=== PATIENT | female | born 1945 | race Caucasian/White ===

== ENCOUNTER 2018-03-05 03:10 | Observation (INO) | payer OTHER ==
--- NOTE | 2018-03-05 03:17 | EDPHY ---
H & P Time Seen by Provider: 03/05/18 03:15 HPI/ROS: HPI CHIEF COMPLAINT: Right shoulder pain. HISTORY OF PRESENT ILLNESS: Patient is a 72-year-old female, very pleasant, she is very hard of hearing and has cochlear implants, has a history of hypertension and hyperlipidemia additionally AFib on Coumadin she presents emergency room with right lateral shoulder pain. She reports to me that she lives in [place] but she staying with a friend here in [place] this evening. She rolled over in bed and woke up with severe right shoulder pain. She has had previous right shoulder dislocations. Denies any chest pain or shortness of breath. Patient did receive 75 mcg IV fentanyl prior to arrival by EMS. Past Medical History: Hypertension, hyperlipidemia, AFib on Coumadin, cochlear implants Past Surgical History: Cochlear implants Social History: Denies daily use drugs alcohol tobacco. Family History: Noncontributory ROS REVIEW OF SYSTEMS: A comprehensive 10 point review of systems is otherwise negative aside from elements mentioned in the history of present illness. Exam Constitutional triage nursing summary reviewed, vital signs reviewed, awake/ alert. Eyes normal conjunctivae and sclera, EOMI, PERRLA. HENT normal inspection, atraumatic, moist mucus membranes, no epistaxis, neck supple/ no meningismus, no raccoon eyes. Respiratory clear to auscultation bilaterally, normal breath sounds, no respiratory distress, no wheezing. Cardiovascular rate normal, regular rhythm, no murmur, no edema, distal pulses normal. Gastrointestinal soft, non-tender, no rebound, no guarding, normal bowel sounds, no distension, no pulsatile mass. Genitourinary no CVA tenderness. Musculoskeletal right upper extremity: Neurovascularly intact, held in abduction, good distal pulse, good radial pulse, good cap refill, tender palpation over the right lateral shoulder. no midline vertebral tenderness, full range of motion, no calf swelling, no tenderness of extremities, no meningismus, good pulses, neurovascularly intact. Skin pink, warm, & dry, no rash, skin atraumatic. Neurologic awake, alert and oriented x 3, AAOx3, moves all 4 extremities equally, motor intact, sensory intact, CN II-XII intact, normal cerebellar, normal vision, normal speech. Psychiatric normal mood/affect. Heme/Lymph/Immune no lymphadenopathy. Differential Diagnosis: Includes but is not limited to in a particular order shoulder dislocation, shoulder fracture can humeral neck fracture, dislocation, osteoarthritis. Medical Decision Making: Plan for this patient x-ray right shoulder. And re- evaluate. Check coags. Re-evaluation: X-ray of the right shoulder reviewed. The humeral head appears to be riding high. I do not appreciate acute fracture. He does not appear dislocated. 0352: Patient re-evaluate she still having ongoing right shoulder pain. I have ordered her 1 mg IV Dilaudid to reassess and see if she can move her shoulder. 0408: Patient re-evaluated. She did receive 1 mg IV Dilaudid and still has significant pain when I go to range her right shoulder. Given the amount of significant pain she is having of proceed with CT scan of her right shoulder to further evaluate. CT scan of the right shoulder shows a posterior shoulder dislocation with fracture. This was discussed with me by Dr. Trejo. This was not well visualized on the x-ray. 0500: Will consult Orthopedics for the posterior right shoulder dislocation. 0501: I spoke with Orthopedic surgery Rae [facility] for Dr. Trent. She will call her attending physician run the case by them for further treatment plan. 0502: I did re-evaluate the patient she is still neurovascular intact with good distal pulse. However she is refusing me to touch her shoulder she has significant pain with any range of motion of the shoulder. Consistent with posterior shoulder joint dislocation. Orthopedics has been consulted. 0516: I had a long discussion with the patient. I gave her the options about going to the operating room today with Orthopedics or attempted conscious sedation with reduction of the posterior shoulder dislocation She would like to try to have a conscious sedation reduction here in the emergency room which will prevent her from going to the operating room. I have consented her verbally for this. She agrees for conscious sedation and closed reduction of the posterior shoulder right dislocation. She understands the risk involved. She understands should be lightly sedated as she has had multiple doses of Dilaudid and had a very full meal at 8:30 a.m. Last night. 0531: Patient in ER room 2. Patient noted to be in AFib as high as 130s. She has trended down to 102 at this time. Will obtain EKG. EKG interpretation by me on record in [employer] system. Impression time of EKG 5:33 a.m., this is AFib rate of 99. No acute ischemia. 0536: I again discussed risk versus benefit of conscious sedation with her and trying to relocate her right posterior shoulder dislocation. Her pain is somewhat controlled now after IV Dilaudid. She is very eager to have this sedation done and her shoulder relocated. She would like to attempt relocation with sedation as opposed to going to the operating room. Given her age, comorbidities, I will give her very low-dose propofol an attempt to reduce it. I do not think she would benefit from significant sedation as it may be too risky and if I am unable to relocate her shoulder she will need to go the operating room later today for full sedation/anesthesia relocation. 0538: Patient now with AFib and at times AFib with RVR in the 130s. I do not think it is appropriate for conscious sedation in the emergency room with AFib with RVR. I will admit her to Medicine. Pain control IV fluids control of her AFib and then orthopedics will need to evaluate. 0539: I spoke with Orthopedics Rae [facility] computer numerical control grinder I discussed the patient is in AFib with RVR at times heart rate in the 130s. I do not feel that it is safe to deeply consciously sedate here in emergency room. The better plan will be for admission to the hospitalist service for IV hydration AFib control and then to the operating room for sedation to relocate her right posterior shoulder. I spoke with the hospitalist service Dr. Gunderson. Agrees to admit the patient for AFib dehydration and pain control. Orthopedics will consult on the posterior shoulder dislocation. 0630: Patient 1 point head AFib with RVR into the 160s. Asymptomatic. She is now back into the 104 range. Was given p. O. Metoprolol. Source: Patient, EMS Constitutional: Initial Vital Signs Temperature (C) 36.6 C 03/05/18 03:13 Heart Rate 98 03/05/18 03:13 Respiratory Rate 18 03/05/18 03:13 Blood Pressure 149/98 H 03/05/18 03:13 O2 Sat (%) 95 03/05/18 03:13 O2 Delivery Mode Nasal Cannula O2 (L/minute) 2 Allergies/Adverse Reactions: No Known Allergies Allergy (Unverified 03/05/18 03:18) Home Medications: Medication Instructions Recorded Fish Oil 1000 mg (*) 03/05/18 Glucosamine 03/05/18 Lisinopril 03/05/18 Pravastatin Sodium 03/05/18 Vit B12/Intrinsic Fact/Folate 03/05/18 Vitamin D3 03/05/18 Warfarin Sodium 03/05/18 Medical Decision Making - Data Points Laboratory Results: Laboratory Results 03/05/18 03:30 03/05/18 03:30 Medications Given: Discontinued Medications Hydromorphone HCl (Dilaudid) 1 mg IVP EDNOW ONE Stop: 03/05/18 03:52 Last Admin: 03/05/18 03:55 Dose: 1 mg Hydromorphone HCl (Dilaudid) 1 mg IVP EDNOW ONE Stop: 03/05/18 05:07 Last Admin: 03/05/18 05:08 Dose: 1 mg Metoprolol Tartrate (Lopressor) 25 mg PO EDNOW ONE Stop: 03/05/18 06:31 Last Admin: 03/05/18 06:32 Dose: 25 mg Departure - Departure Disposition: [facility] Inpatient Acute Clinical Impression: Atrial fibrillation with RVR, Dehydration Shoulder dislocation Qualifiers: Encounter type: initial encounter Laterality: right Qualified Code(s): S43.004A - Unspecified dislocation of right shoulder joint, initial encounter Condition: Fair
[2018-03-05 03:35] LABS: PLATELET COUNT 229 10^3/uL (150-400)
[2018-03-05] MEDS ORDERED: HYDROmorphONE/DILAUDID 1 MG/ML INJ ONE ×2 (03:51→05:03)
[2018-03-05] MEDS ORDERED: HYDROmorphONE/DILAUDID 2 MG/ML INJ IVP ONE (03:51)
[2018-03-05 03:55] LABS: INR 3.48 (0.83-1.16); PROTIME(PATIENT) 34.7 SEC (12.0-15.0)
[2018-03-05] MEDS ORDERED: HYDROmorphONE/DILAUDID 1 MG/ML INJ IVP ONE (05:06)
[2018-03-05] MEDS ORDERED: PROPOFOL 200 MG/20 ML VIAL IV ONE (05:23)
[2018-03-05] MEDS ORDERED: PROPOFOL 200 MG/20 ML VIAL ONE (05:24)
--- NOTE | 2018-03-05 05:41 | CPEKG ---
Heart Rate: 99 RR Interval: 606 QRSD Interval: 76 QT Interval: 356 QTC Interval: 457 QRS Raymond: 43 T Wave Raymond: -8 EKG Severity - ABNORMAL ECG - EKG Impression: ATRIAL FIBRILLATION EKG Impression: BORDERLINE T ABNORMALITIES, DIFFUSE LEADS Electronically Signed By: Brian Bentley 05-Mar-2018 07:22:47
[2018-03-05] MEDS ORDERED: ONDANSETRON DISINTEGRATING 4 MG TAB PO PRN (05:47)
[2018-03-05] MEDS ORDERED: ONDANSETRON 4 MG/2 ML VIAL IVP PRN (05:47)
[2018-03-05] MEDS ORDERED: HYDROmorphONE/DILAUDID 2 MG TAB PO PRN (05:47)
[2018-03-05] MEDS ORDERED: ACETAMINOPHEN 325 MG TAB PO PRN (05:47)
[2018-03-05] MEDS ORDERED: HYDROmorphONE/DILAUDID 1 MG/ML INJ IVP PRN (05:47)
[2018-03-05] MEDS ORDERED: METOPROLOL TARTRATE 25 MG TAB PO ONE (06:30)
--- NOTE | 2018-03-05 06:37 | PDGENHP ---
History and Physical - Chief Complaint R should pain - History of Present Illness 72 yo deaf F w/ AF and 3 prior shoulder dislocations presents w R shoulder pain. Patient was sleeping and rolled on her R side dislocating her R shoulder. This has happened several times before in a similar fashion. Evaluation in the ED reveals posterior dislocation. Orthopedics consulted and would like hospital medicine to admit the patient noting hx of AF. During my evaluation patient has no complaints aside from R shoulder pain. She is currently in AF on the monitor with HR in 90-105 range. She takes warfarin for AF and an unknown dose of metoprolol for rate control. History Information - Allergies/Home Medication List Allergies/Adverse Reactions: No Known Allergies Allergy (Unverified 03/05/18 03:18) Home Medications: Fish Oil 1000 mg (*) 03/05/18 [Last Taken Unknown] Glucosamine 03/05/18 [Last Taken Unknown] Lisinopril 03/05/18 [Last Taken Unknown] Pravastatin Sodium 03/05/18 [Last Taken Unknown] Vit B12/Intrinsic Fact/Folate 03/05/18 [Last Taken Unknown] Vitamin D3 03/05/18 [Last Taken Unknown] Warfarin Sodium 03/05/18 [Last Taken Unknown] I have personally reviewed and updated: family history, medical history - Past Medical History atrial fibrillation - Surgical History Additional surgical history: 2 prior R shoulder surgeries - Family History Positive for: CAD - Social History Smoking Status: Former smoker Review of Systems Review of Systems: ROS: 10pt was reviewed & negative except for what was stated in HPI & below Physical Exam Physical Exam: Temp Pulse Resp BP Pulse Ox 36.7 C 97 18 119/94 H 97 03/05/18 06:30 03/05/18 06:30 03/05/18 06:30 03/05/18 06:30 03/05/18 06:30 Constitutional: no apparent distress, appears nourished, uncomfortable Eyes: PERRL, EOMI Ears, Nose, Mouth, Throat: moist mucous membranes, no oral mucosal ulcers Cardiovascular: systolic murmur, irregularly irregular Respiratory: no respiratory distress, clear to auscultation Gastrointestinal: normoactive bowel sounds, soft, non-tender abdomen Skin: warm, normal color Musculoskeletal: joint effusion, pain with ROM, muscular tenderness, other (R shoulder w/ ecchymosis and abnormal alignment) Neurologic: AAOx3, other (Hard of hearing), No facial droop Psychiatric: interacting appropriately, not anxious Lab Data & Imaging Review 03/05/18 03:30 03/05/18 03:30 WBC 13.37 10^3/uL (3.80-9.50) H 03/05/18 03:30 RBC 4.78 10^6/uL (4.18-5.33) 03/05/18 03:30 Hgb 14.3 g/dL (12.6-16.3) 03/05/18 03:30 Hct 43.1 % (38.0-47.0) 03/05/18 03:30 MCV 90.2 fL (81.5-99.8) 03/05/18 03:30 MCH 29.9 pg (27.9-34.1) 03/05/18 03:30 MCHC 33.2 g/dL (32.4-36.7) 03/05/18 03:30 RDW 13.1 % (11.5-15.2) 03/05/18 03:30 Plt Count 229 10^3/uL (150-400) 03/05/18 03:30 MPV 9.2 fL (8.7-11.7) 03/05/18 03:30 Neut % (Auto) 77.8 % (39.3-74.2) H 03/05/18 03:30 Lymph % (Auto) 16.4 % (15.0-45.0) 03/05/18 03:30 [place] % (Auto) 4.9 % (4.5-13.0) 03/05/18 03:30 Eos % (Auto) 0.2 % (0.6-7.6) L 03/05/18 03:30 Baso % (Auto) 0.3 % (0.3-1.7) 03/05/18 03:30 Nucleat RBC Rel Count 0.0 % (0.0-0.2) 03/05/18 03:30 Absolute Neuts (auto) 10.41 10^3/uL (1.70-6.50) H 03/05/18 03:30 Absolute Lymphs (auto) 2.19 10^3/uL (1.00-3.00) 03/05/18 03:30 Absolute Monos (auto) 0.65 10^3/uL (0.30-0.80) 03/05/18 03:30 Absolute Eos (auto) 0.03 10^3/uL (0.03-0.40) 03/05/18 03:30 Absolute Basos (auto) 0.04 10^3/uL (0.02-0.10) 03/05/18 03:30 Absolute Nucleated RBC 0.00 10^3/uL (0-0.01) 03/05/18 03:30 Immature Gran % 0.4 % (0.0-1.1) 03/05/18 03:30 Immature Gran # 0.05 10^3/uL (0.00-0.10) 03/05/18 03:30 PT 34.7 SEC (12.0-15.0) H 03/05/18 03:30 INR 3.48 (0.83-1.16) H 03/05/18 03:30 APTT 35.0 SEC (23.0-38.0) 03/05/18 03:30 Sodium 142 mEq/L (135-145) 03/05/18 03:30 Potassium 3.5 mEq/L (3.3-5.0) 03/05/18 03:30 Chloride 103 mEq/L (97-110) 03/05/18 03:30 Carbon Dioxide 25 mEq/l (22-31) 03/05/18 03:30 Anion Gap 14 mEq/L (8-16) 03/05/18 03:30 BUN 18 mg/dL (7-23) 03/05/18 03:30 Creatinine 0.8 mg/dL (0.6-1.0) 03/05/18 03:30 Estimated GFR > 60 03/05/18 03:30 Glucose 118 mg/dL (70-100) H 03/05/18 03:30 Calcium 9.0 mg/dL (8.5-10.4) 03/05/18 03:30 Imaging Review: Shoulder x-ray Allignment abnl CT shoulder There is a posterior dislocation w/ associated small avulsion fragments and large effusion Called to ER @ 0450 hrs Assessment & Plan Assessment: 72 yo w AF presents w/ posterior shoulder dislocation. Plan: 1. Posterior shoulder dislocation - Per patient, this has happened several times before. - Orthopedics consulted for management - Dilaudid IV, PO for pain control - Maintain NPO 2. AF - Takes warfarin for AC and unclear dose of metoprolol. HR currently in 90 -105 range w/ SBP>130. - Will dose metoprolol 25 mg PO x1 now - Needs med reconciliation Diet - NPO Code - Full Ppx - warfarin Dispo - Admit under observation status, case discussed with Dr. Hicks
[2018-03-05 07:08] VITALS: BP 132/109
--- NOTE | 2018-03-05 11:49 | SOAPPROG ---
SOAP Progress Note Assessment/Plan: Assessment: R shoulder repeat posterior dislocation presented to ER in Afib with RVR. Plan: Intended plan to treat her posterior shoulder dislocation under GETA was not completed, as the patient left [facility] AMA still in Afib with hyper- therapeutic anticoagulation, and posterior shoulder dislocation. Information of leaving AMA confirmed by Escobar Kumar, building construction estimator on 3N, who noted that the patient would not remain in the hospital, regardless of their multiple attempts to explain the need for medical care prior to general anesthesia and surgical care. 03/05/18 11:52 Subjective: By report, multiple prior R shoulder dislocations. C/o severe pain in the ER. I was consulted to treat her shoulder dislocation, however, due to Afib with RVR ER/med team plan was to admit patient and control her arrythmia prior to any surgical intervention in OR. Objective: Vital Signs Temp Pulse Resp BP Pulse Ox 36.7 C 117 H 16 132/109 H 97 03/05/18 06:30 03/05/18 06:50 03/05/18 06:50 03/05/18 06:50 03/05/18 06:50 PT 34.7 SEC (12.0-15.0) H 03/05/18 03:30 INR 3.48 (0.83-1.16) H 03/05/18 03:30 Pt admitted to medicine for Afib, on warfarin with INR 3.5, in order to medically stabilize her prior to closed vs open reduction R shoulder in OR. ICD10 Worksheet Patient Problems: Problems Problem Status Onset Atrial fibrillation with RVR Acute Dehydration Acute Shoulder dislocation Acute
== END 2018-03-05 07:45 | disposition left against medical advice (07) ==
LOC: F3N 06:45
PROVIDERS: ADMIT Student in an Organized Health Care Education/Training Program; ATTEND Student in an Organized Health Care Education/Training Program
DX: M24.411 Recurrent dislocation, right shoulder (principal); I48.91 Unspecified atrial fibrillation; Z79.01 Long term (current) use of anticoagulants; Z87.891 Personal history of nicotine dependence; Z53.29 Procedure and treatment not carried out because of patient's decision for other reasons
CPT/HCPCS: 73030; 73200; 93005; 96374; 96376; 99285; G0378; J1170; J2704